=== PATIENT | female | born 1945 | race Caucasian/White ===

== ENCOUNTER 2020-10-11 15:00 | Outpatient (REF) | payer OTHER, SELFPAY | END 2020-10-11 15:01 | disposition home or self-care (01) | LOC: HO.LNP 15:00 | PROVIDERS: Visit Provider Internal Medicine Hematology & Oncology | DX: S31.819A Unspecified open wound of right buttock, initial encounter (principal); X58.XXXA Exposure to other specified factors, initial encounter; Y93.9 Activity, unspecified; Y92.9 Unspecified place or not applicable; Y99.8 Other external cause status | CPT/HCPCS: 87071; 87205 ==

== ENCOUNTER 2021-04-11 12:52 | Outpatient (REF) | payer MEDICARE, BC, SELFPAY ==
[2021-04-11 13:34] LABS: Influenza A PCR NEGATIVE (Negative); Influenza B PCR NEGATIVE (Negative); Resp Syncy Virus RNA Qual PCR NEGATIVE (Negative); SARS COV2 PCR INHOUSE NEGATIVE (Negative)
== END 2021-04-11 12:53 | disposition home or self-care (01) ==
LOC: HO.HVNA 12:52
PROVIDERS: Visit Provider Internal Medicine
DX: Z20.822 Contact with and (suspected) exposure to COVID-19 (principal)
CPT/HCPCS: 0241U; 36415